=== PATIENT | male | born 1990 | race Caucasian/White ===

== ENCOUNTER 2019-09-26 14:44 | Inpatient (IN) | payer OTHER ==
[~2019-09-26] VITALS: Ht 172.7 cm; Wt 72.6 kg
[2019-09-26 15:06] LABS: BASOPHILS PERCENT AUTO 1 % (0-2); EOSINOPHILS ABSOLUTE AUTO 0.48 K/mm3 (0.00-0.68); EOSINOPHILS PERCENT AUTO 4 % (0-6); Hematocrit 42.9 % (37.0-53.0); Hemoglobin 14.2 g/dL (13.5-17.5); IMMATURE GRAN ABSOLUTE AUTO 0.03 K/mm3 (0.00-0.10); IMMATURE GRAN PERCENT AUTO 0 % (0-1); LYMPHOCYTES ABSOLUTE AUTO 5.58 K/mm3 (0.84-5.20); LYMPHOCYTES PERCENT AUTO 45 % (21-46); MONOCYTES ABSOLUTE AUTO 0.95 K/mm3 (0.16-1.47); MONOCYTES PERCENT AUTO 8 % (4-13); Mean Corpuscular HGB 27.8 pg (26.0-34.0); Mean Corpuscular HGB Conc 33.1 g/dL (31.5-36.5); Mean Corpuscular Volume 84 fL (80-100); Mean Platelet Volume 11.8 fL (9.1-12.4); NEUTROPHILS PERCENT AUTO 42 % (41-73); Platelet Count 320 K/mm3 (150-400); RDW Coefficient Variation 12.7 % (11.7-14.2); RDW Standard Deviation 39.1 fL (35.1-46.3); Red Blood Cell Count 5.11 M/mm3 (4.30-5.90); White Blood Cell Count 12.34 K/mm3 (4.00-11.30)
[2019-09-26 15:26] LABS: Alanine Aminotransfer (ALT/SGP 25 U/L (12-78); Albumin, Blood 4.3 g/dL (3.4-5.0); Albumin/Globulin Ratio 1.2 (0.8-1.8); Alk Phos 55 U/L (50-136); Anion Gap 8 mmol/L (6-16); Aspartate Aminotrans (AST/SGOT 31 U/L (12-37); Bilirubin, Total 0.3 mg/dL (0.1-1.0); Blood Urea Nitrogen 17 mg/dL (8-24); Bun/Creatinine Ratio 17.2 (12.0-20.0); CO2, Blood 25 mmol/L (21-32); Calcium, Blood 8.7 mg/dL (8.5-10.1); Chloride, Blood 107 mmol/L (98-108); Creatinine, Blood 0.99 mg/dL (0.60-1.20); Globulin, Blood 3.5 g/dL (2.2-4.0); Glomerular Filtration Rate >60 (60-); Glucose, Blood 135 mg/dL (70-99); Potassium, Blood 3.3 mmol/L (3.5-5.5); Sodium, Blood 140 mmol/L (136-145); Total Protein, Blood 7.8 g/dL (6.4-8.2)
[2019-09-26 15:47] LABS: Creatine Kinase MB 3.7 ng/mL (0.0-3.6); Creatine Kinase MB Index 0.6 (0.0-4.0)
--- NOTE | 2019-09-26 19:22 | NUR ---
ARRIVAL TO UNIT PT ARRIVED TO UNIT VIA GURNEY FROM ER. ABLE TO SLIDE OVER UNDER OWN POWER. RIGHT ARM IN CAST, SENSATION PRESENT IN AFFECTED ARM ABLE TO WIGGLE FINGERS, CAP REFILL <3. TRACTION ELEVATING RIGHT ARM. PATIENT DENIES NEEDS AT THIS TIME. FAMILY MEMBER AT BEDSIDE. CALL LIGHT IN REACH. PT ORIENTED TO UNIT.
--- NOTE | 2019-09-26 21:10 | NUR ---
PT MOVED TO SIT UP AND URINATE, SAID HE FELT A GODDARD OF PAIN TO RIGHT ARM. MEDICATED PER EMAR AND PATIENT CURRENTLY RESTING IN BED. TOLERATED WELL. FAMILY AT BEDSIDE. CALL LIGHT IN REACH.
--- NOTE | 2019-09-27 03:25 | NUR ---
SHIFT SUMMARY FX OF RIGHT RADIUS. PT AA0X4, VSS. PAIN MANAGED PER EMAR WITH 1MG OF DILAUDID X3. PT DENIES NAUSEA. BULKY SPLINT IN PLACE ON RIGHT ARM, ELEVATED WITH TRACTION. CAP REFILL <3, SENSATION PRESENT, CAN WIGGLE FINGERS. DENIES NUMBNESS IN DISTAL ARM. SOME NUMBNESS REPORTED IN SHOULDER, PATIENT STATES RELIEF WITH REPOSITIONING OF SHOULDER. PATIEN VOIDING IN URINAL. NPO SINCE MIDNIGHT. REPOSITIONS SELF IN BED. PLAN IS FOR ORIF AT SOME POINT TODAY.
[2019-09-27 04:06] LABS: BASOPHILS ABSOLUTE AUTO 0.05 K/mm3 (0.00-0.23); BASOPHILS PERCENT AUTO 1 % (0-2); EOSINOPHILS ABSOLUTE AUTO 0.26 K/mm3 (0.00-0.68); EOSINOPHILS PERCENT AUTO 2 % (0-6); Hematocrit 39.9 % (37.0-53.0); Hemoglobin 12.9 g/dL (13.5-17.5); IMMATURE GRAN ABSOLUTE AUTO 0.03 K/mm3 (0.00-0.10); IMMATURE GRAN PERCENT AUTO 0 % (0-1); LYMPHOCYTES ABSOLUTE AUTO 3.25 K/mm3 (0.84-5.20); LYMPHOCYTES PERCENT AUTO 31 % (21-46); MONOCYTES ABSOLUTE AUTO 1.05 K/mm3 (0.16-1.47); MONOCYTES PERCENT AUTO 10 % (4-13); Mean Corpuscular HGB 27.4 pg (26.0-34.0); Mean Corpuscular HGB Conc 32.3 g/dL (31.5-36.5); Mean Corpuscular Volume 85 fL (80-100); Mean Platelet Volume 11.5 fL (9.1-12.4); NEUTROPHILS ABSOLUTE AUTO 6.03 K/mm3 (1.96-9.15); NEUTROPHILS PERCENT AUTO 57 % (41-73); Platelet Count 245 K/mm3 (150-400); RDW Coefficient Variation 12.8 % (11.7-14.2); RDW Standard Deviation 39.6 fL (35.1-46.3); White Blood Cell Count 10.67 K/mm3 (4.00-11.30)
[2019-09-27 04:33] LABS: Albumin, Blood 3.3 g/dL (3.4-5.0); Anion Gap 3 mmol/L (6-16); Blood Urea Nitrogen 14 mg/dL (8-24); CO2, Blood 28 mmol/L (21-32); Calcium, Blood 7.9 mg/dL (8.5-10.1); Chloride, Blood 110 mmol/L (98-108); Creatinine, Blood 0.93 mg/dL (0.60-1.20); Glomerular Filtration Rate >60 (60-); Glucose, Blood 91 mg/dL (70-99); Phosphorus, Blood 4.1 mg/dL (2.5-4.9); Potassium, Blood 4.3 mmol/L (3.5-5.5); Sodium, Blood 141 mmol/L (136-145)
[2019-09-27 04:43] LABS: CPK Creatine Kinase 2039 U/L (39-308)
--- NOTE | 2019-09-27 16:48 | NUR ---
SHIFT SUMMARY PT A&OX4, VSS, BEDREST, R RADIAL FX, BIG BULKY SPLINT ELEVATED W/TRACTION, PLAN FOR ORIF AT 1900 TODAY; NPO SINCE NOON (FOOD TILL 1000, CLEAR LIQUIDS UNTIL 12NOON). PAIN MANAGED W/ 1 MG DILAUDID PER EMAR. NAUSEA TX'D TWICE WITH ZOFRAN. IVF @ 200 MLS/HR. WILL REPORT TO ONCOMING NOC RN.
--- NOTE | 2019-09-28 03:22 | NUR ---
XRAY IN WITH PT AT THIS TIME
--- NOTE | 2019-09-28 05:15 | NUR ---
SHIFT SUMMARY POD 1 THIS AM FOR ORIF OF RIGHT RADIAL FX. NEY WRAP AND SPLINT IN PLACE, DRESSING C/D/I. REPORTS PAIN AT TOLERABLE LEVEL WITH PO MEDS, IV DILAUTID FOR BREAK THROUGH AND REPOSITIONING PRN. DENIES N/V AND TOLERATING LIQUIDS/CRACKERS. ABLE TO AMBULATE TO BATHROOM WITH STANDY BY. SPOUSE AT BEDSIDE AND SUPPORTIVE T/O SHIFT. PT SITTING UP IN BED AT THIS TIME WITH AT BEDSIDE AND CALL LIGHT WITHIN REACH.
[2019-09-28 06:24] LABS: BASOPHILS ABSOLUTE AUTO 0.02 K/mm3 (0.00-0.23); BASOPHILS PERCENT AUTO 0 % (0-2); EOSINOPHILS PERCENT AUTO 0 % (0-6); Hematocrit 38.2 % (37.0-53.0); Hemoglobin 12.4 g/dL (13.5-17.5); IMMATURE GRAN ABSOLUTE AUTO 0.05 K/mm3 (0.00-0.10); IMMATURE GRAN PERCENT AUTO 1 % (0-1); LYMPHOCYTES PERCENT AUTO 15 % (21-46); MONOCYTES PERCENT AUTO 9 % (4-13); Mean Corpuscular HGB 28.1 pg (26.0-34.0); Mean Corpuscular HGB Conc 32.5 g/dL (31.5-36.5); Mean Corpuscular Volume 86 fL (80-100); Mean Platelet Volume 11.9 fL (9.1-12.4); NEUTROPHILS ABSOLUTE AUTO 6.72 K/mm3 (1.96-9.15); NEUTROPHILS PERCENT AUTO 76 % (41-73); Platelet Count 251 K/mm3 (150-400); RDW Coefficient Variation 12.9 % (11.7-14.2); RDW Standard Deviation 40.6 fL (35.1-46.3); Red Blood Cell Count 4.42 M/mm3 (4.30-5.90); White Blood Cell Count 8.89 K/mm3 (4.00-11.30)
[2019-09-28 06:47] LABS: Albumin, Blood 3.2 g/dL (3.4-5.0); Anion Gap 5 mmol/L (6-16); Blood Urea Nitrogen 9 mg/dL (8-24); Bun/Creatinine Ratio 10.3 (12.0-20.0); CO2, Blood 27 mmol/L (21-32); Chloride, Blood 109 mmol/L (98-108); Creatinine, Blood 0.87 mg/dL (0.60-1.20); Glomerular Filtration Rate >60 (60-); Glucose, Blood 128 mg/dL (70-99); Phosphorus, Blood 3.4 mg/dL (2.5-4.9); Potassium, Blood 4.3 mmol/L (3.5-5.5); Sodium, Blood 141 mmol/L (136-145)
[2019-09-28 06:52] LABS: CPK Creatine Kinase 3473 U/L (39-308)
--- NOTE | 2019-09-28 12:04 | NUR ---
09/28/19 1204 Debbie Marquez VERIFICATIONS: EDIT CHART.
[2019-09-28] MEDS ORDERED: CEPH500 PO (14:30)
[2019-09-28] MEDS ORDERED: DOCU100 PO (14:30)
[2019-09-28] MEDS ORDERED: Culturelle1 CAP PO (14:31)
[2019-09-28] MEDS ORDERED: Percocet 7.5-31 EACH PO (14:32)
--- NOTE | 2019-09-28 17:13 | NUR ---
DISCHARGE SUMMARY PT A&OX4, VSS, WALKED OFF FLOOR WITH , HIS MOTHER AND FATHER, ALL PERSONAL POSSESSIONS INCLUDING DISCHARGE PACKET, 1 NARC SCRIPT; ALL OTHER MEDS FAXED TO [facility]. DC INSTRUCTIONS PROVIDED, PT AND REP UNDERSTANDING THOSE INSTRUCTIONS INCLUDING KEEP SPLINT DRY/INTACT, ELEVATE RUE AT REST, TAKE SHORT FREQUENT WALKS T/O DAY, FU WITH SURGEON IN 2 WKS. IV DC'D.
== END 2019-09-28 17:03 | disposition home or self-care (01) | DRG 502 ==
LOC: ER 14:44 → SURS 16:57
PROVIDERS: Orthopaedic Surgery; Physician Assistant; ADMIT Internal Medicine
PROC: 0KN90ZZ Release Right Lower Arm and Wrist Muscle, Open Approach (ICD-10-PCS; 2019-09-27)
PROC: 0PSH04Z Reposition Right Radius with Internal Fixation Device, Open Approach (ICD-10-PCS; principal; 2019-09-27 19:00)
DX: S52.301A Unspecified fracture of shaft of right radius, initial encounter for closed fracture (principal); Z98.52 Vasectomy status; E87.6 Hypokalemia; F43.0 Acute stress reaction; T79.6XXA Traumatic ischemia of muscle, initial encounter; S50.811A Abrasion of right forearm, initial encounter; W31.82XA Contact with other commercial machinery, initial encounter; Y92.69 Other specified industrial and construction area as the place of occurrence of the external cause
CPT/HCPCS: 29105; 36415; 73060; 73080; 73090; 73110; 73130; 80053; 80069; 82550; 82553; 85025; 96361-59; 96365-59; 96375-59; 96376-59; 97110; 97161; 99284-25; A9270-GY; C1713; J0690; J1100; J1170; J2250; J2405; J2704; J3010; J7030; J7120